=== PATIENT | female | born 1970 | race Caucasian/White ===

== ENCOUNTER → 2018-06-25 | Outpatient (CLI) | payer OTHER ==
[2015-04-21 16:00] VITALS: BP 144/82
[~2018-06-25] MED LIST: IBUP400T18; METF100010 PO; METH-38 PO; NAPR-514 PO; SITA50TA PO; VENL75CA PO
[2018-06-25 15:15] LABS: BASO # 0.1 x10^3/uL (0.0-0.2); BASO % 1 % (0-3); EOS # 0.2 x10^3/uL (0.0-0.7); EOS % 2 % (0-3); HEMATOCRIT 45.3 % (36.0-47.0); HEMOGLOBIN 14.6 g/dL (12.0-15.5); LYMPH # 1.9 x10^3/uL (1.0-4.8); LYMPH % 21 % (24-48); MEAN CORPUSCULAR HEMOGLOBIN 31 pg (25-35); MEAN CORPUSCULAR HGB CONC 32 g/dL (31-37); MEAN CORPUSCULAR VOLUME 95 fL (79-100); MONO # 0.6 x10^3/uL (0.0-1.1); MONO % 7 % (0-9); NEUT # 6.2 x10^3uL (1.8-7.7); NEUT % 69 % (31-73); PLATELET COUNT 314 x10^3/uL (140-400); RED BLOOD COUNT 4.75 x10^6/uL (3.50-5.40); RED CELL DISTRIBUTION WIDTH 14.2 % (11.5-14.5); WHITE BLOOD COUNT 8.9 x10^3/uL (4.0-11.0)
[2018-06-25 15:18] LABS: CALCIUM 9.1 mg/dL (8.5-10.1); CREATININE 0.9 mg/dL (0.6-1.0); GFR 67.4; POTASSIUM 4.1 mmol/L (3.5-5.1)
[2018-06-26 20:09] LABS: HEMOGLOBIN A1C 6.4 % (4.8-5.6)
== END | disposition home or self-care (01) ==
LOC: LAB 14:26
PROVIDERS: ATTEND Neurological Surgery
DX: Z01.818 Encounter for other preprocedural examination (principal); M50.223 Other cervical disc displacement at C6-C7 level; Z91.040 Latex allergy status; Z91.048 Other nonmedicinal substance allergy status
CPT/HCPCS: 36415; 80048; 83036; 85025; 85610; 87641

== ENCOUNTER → 2018-08-06 | Outpatient (CLI) | payer OTHER ==
[2015-04-21 16:00] VITALS: BP 144/82
--- NOTE | 2018-08-06 15:19 | RAD ---
EXAM: Cervical spine, 3 views. HISTORY: Fusion. COMPARISON: MRI dated 06/13/2018. FINDINGS: Frontal, lateral and odontoid views of the cervical spine are obtained. There is instrumented anterior spinal fusion and interbody fusion and C5-C7. There is prevertebral soft tissue prominence likely due to relative recent postoperative change. There is degenerative endplate remodeling with disc space narrowing at C7-T1. There is multilevel facet arthropathy. IMPRESSION: 1. Instrumented fusion at C5-C7. There is prevertebral soft tissue prominence likely due to relative recent postoperative changes. 2. Multilevel degenerative change, primarily at C7-T1. Electronically signed by: Carola Hernadez MD (08/06/2018 3:17 PM) [facility]
== END | disposition home or self-care (01) ==
LOC: RAD 14:57
PROVIDERS: ATTEND Neurological Surgery
DX: M43.22 Fusion of spine, cervical region (principal); M47.893 Other spondylosis, cervicothoracic region; M48.03 Spinal stenosis, cervicothoracic region; M12.88 Other specific arthropathies, not elsewhere classified, other specified site; Z98.1 Arthrodesis status
CPT/HCPCS: 72040

== ENCOUNTER → 2018-09-10 | Outpatient (CLI) | payer OTHER ==
[2015-04-21 16:00] VITALS: BP 144/82
--- NOTE | 2018-09-10 14:53 | RAD ---
DATE: 09/10/2018 EXAM: MAMMO TREMAINE SCREENING BILATERAL HISTORY: Routine screening COMPARISON: Baseline study This study was interpreted with the benefit of Computerized Aided Detection (CAD). Breast Density: SCATTERED The breast parenchyma shows scattered fibroglandular densities. Breast parenchyma level B. FINDINGS: 2-D and 3-D tomosynthesis imaging was performed in CC and MLO projections. No suspicious breast density or architectural distortion is seen. Minimal benign type calcifications are noted. No suspicious microcalcifications are seen. IMPRESSION: There is no mammographic evidence of malignancy in either breast. BI-RADS CATEGORY: 2 BENIGN FINDING(S) RECOMMENDED FOLLOW-UP: 12M 12 MONTH FOLLOW-UP PQRS compliance statement: Patient information was entered into a reminder system with a target due date for the next mammogram. Mammography is a sensitive method for finding small breast cancers, but it does not detect them all and is not a substitute for careful clinical examination. A negative mammogram does not negate a clinically suspicious finding and should not result in delay in biopsying a clinically suspicious abnormality. "Our facility is accredited by the [employer] Mammography Program."
== END | disposition home or self-care (01) ==
LOC: MAMMO 13:42
PROVIDERS: ATTEND Physician Assistant Medical
DX: Z12.31 Encounter for screening mammogram for malignant neoplasm of breast (principal); R92.8 Other abnormal and inconclusive findings on diagnostic imaging of breast
CPT/HCPCS: 77063; 77067

== ENCOUNTER → 2018-10-15 | Outpatient (CLI) | payer OTHER ==
[2015-04-21 16:00] VITALS: BP 144/82
--- NOTE | 2018-10-15 12:52 | RAD ---
Cervical spine, 3 views, 10/15/2018: HISTORY: Postop anterior spinal fusion Comparison is made to a study from 08/06/2018. Changes of an anterior spinal fusion from C5 through C7 are again noted. There is an anterior fixation plate in place with 2 screws extending into the C5, C6 and C7 vertebral bodies. Radiopaque disc spacers are present C5-6 and C6-7. The alignment is anatomic and unchanged. There are mild scattered degenerative changes in the cervical spine including the C7-T1 disc level. No new bony abnormality is detected. IMPRESSION: Stable lower cervical anterior spinal fusion. Electronically signed by: Boris Scruggs MD (10/15/2018 12:50 PM) [facility]
== END | disposition home or self-care (01) ==
LOC: RAD 12:09
PROVIDERS: ATTEND Neurological Surgery
DX: M43.22 Fusion of spine, cervical region (principal); Z98.1 Arthrodesis status
CPT/HCPCS: 72040

== ENCOUNTER → 2018-12-01 | Outpatient (CLI) | payer OTHER ==
[2015-04-21 16:00] VITALS: BP 144/82
--- NOTE | 2018-12-01 11:06 | RAD ---
3 view cervical spine 12/01/2018 INDICATION: Neck pain following ACDF COMPARISON STUDY: Cervical spine radiographs October 15, 2018 FINDINGS: No evidence of acute fracture or alignment abnormality is identified. Postsurgical change following anterior fusion of C5-C7 again noted. Configuration appears grossly unchanged. No acute appearing prevertebral soft tissue thickening is identified in the interval. The atlantoaxial articulation appears to remain intact. No gross hardware complication is identified. IMPRESSION: Stable radiographic appearance of the cervical spine. Electronically signed by: Cornelio Elder MD (12/01/2018 11:04 AM) [id number]
== END | disposition home or self-care (01) ==
LOC: DXRAD 09:41
PROVIDERS: ATTEND Neurological Surgery
DX: M54.2 Cervicalgia (principal); Z98.1 Arthrodesis status
CPT/HCPCS: 72040

== ENCOUNTER → 2018-12-01 | Outpatient (CLI) | payer OTHER ==
[2015-04-21 16:00] VITALS: BP 144/82
[2018-12-01 10:38] LABS: BASO % 1 % (0-3); EOS # 0.2 x10^3/uL (0.0-0.7); EOS % 4 % (0-3); HEMATOCRIT 41.5 % (36.0-47.0); HEMOGLOBIN 13.8 g/dL (12.0-15.5); LYMPH # 1.4 x10^3/uL (1.0-4.8); LYMPH % 30 % (24-48); MEAN CORPUSCULAR HEMOGLOBIN 32 pg (25-35); MEAN CORPUSCULAR HGB CONC 33 g/dL (31-37); MEAN CORPUSCULAR VOLUME 95 fL (79-100); MONO # 0.3 x10^3/uL (0.0-1.1); MONO % 6 % (0-9); NEUT # 2.8 x10^3uL (1.8-7.7); NEUT % 60 % (31-73); PLATELET COUNT 226 x10^3/uL (140-400); RED BLOOD COUNT 4.35 x10^6/uL (3.50-5.40); RED CELL DISTRIBUTION WIDTH 14.1 % (11.5-14.5); WHITE BLOOD COUNT 4.7 x10^3/uL (4.0-11.0)
[2018-12-01 10:45] LABS: ALBUMIN 3.8 g/dL (3.4-5.0); ALBUMIN/GLOBULIN RATIO 1.2 (1.0-1.7); CREATININE 0.8 mg/dL (0.6-1.0); GFR 76.9; POTASSIUM 4.2 mmol/L (3.5-5.1); TOTAL BILIRUBIN 0.4 mg/dL (0.2-1.0)
[2018-12-01 15:25] LABS: FREE T4 0.89 ng/dL (0.76-1.46)
[2018-12-01 15:26] LABS: THYROID STIM HORMONE (TSH) 1.576 uIU/mL (0.358-3.740)
[2018-12-01 20:08] LABS: FSH 92.7 mIU/mL (.); LUTEINIZING HORMONE 50.7 mIU/mL (.); PROGESTERONE 0.2 ng/mL (.); TESTOSTERONE TOTAL 10 ng/dL (8-48)
[2018-12-02 10:07] LABS: HEMOGLOBIN A1C 6.1 % (4.8-5.6)
== END | disposition home or self-care (01) ==
LOC: LAB 09:34
PROVIDERS: ATTEND Physician Assistant Medical
DX: E55.9 Vitamin D deficiency, unspecified (principal); R53.83 Other fatigue; R23.2 Flushing; Z98.84 Bariatric surgery status
CPT/HCPCS: 36415; 80053; 80061; 82306; 82607; 82672; 82728; 83001; 83002; 83036; 83540; 83550; 84144; 84403; 84439; 84443; 84481; 85025

== ENCOUNTER 2020-09-24 19:41 | Emergency (ER) | payer BC, OTHER ==
[~2020-09-24] VITALS: Ht 170.2 cm; Wt 87.7 kg
--- NOTE | 2020-09-24 20:15 | PHYS DOC ---
Past History Past Medical History: Arthritis, Diabetes, Sciatica, Other Past Surgical History: , Hysterectomy, Other Past Surgical History back s urgery Smoking: Non-smoker Alcohol Use: None Drug Use: None General Adult EDM: Chief Complaint: HIP PAIN HPI: HPI: ".. I having severe pain.. here on my lateral .. Rt right thigh..." Patient is a 49 year old female who presents with above hx and complaints severe pain along her upper hip and right thigh. Pain has been somewhat persistent tonight. Patient has had previous history of sciatica but feels that this pain is different. Patient has past medical history of sciatica, diabetes, arthritis, and muscle spasms. Patient denies any fever or chills. No recent travel. No history of cancer. No history immunosuppression. No history of problems with defecation or urination. Normally follows flow of [place] and Dr. Mckeon for care. Pt. denies any recent trauma. No heavy lifting. Review of Systems: Review of Systems: Constitutional: Denies fever or chills Eyes: Denies change in visual acuity HENT: Denies nasal congestion or sore throat Respiratory: Denies cough or shortness of breath Cardiovascular: Denies chest pain or edema GI: Denies abdominal pain, nausea, vomiting, bloody stools or diarrhea : Denies dysuria Musculoskeletal: Complains of right hip pain that runs down her leg Integument: Denies rash Neurologic: Denies headache, focal weakness or sensory changes Endocrine: Denies polyuria or polydipsia Lymphatic: Denies swollen glands Psychiatric: Denies depression or anxiety Family History: Family History: Noncontributory to presentation Current Medications: Current Meds: See nursing for home meds Allergies: Allergies: Allergies Coded Allergies Type Severity Reaction Last Updated Verified No Known Drug Allergies 03/23/16 No Physical Exam: PE: Constitutional: Moderate acute distress, non-toxic appearance. [] HENT: Normocephalic, atraumatic, bilateral external ears normal, oropharynx moist, no oral exudates, nose normal. [] Eyes: PERRLA, EOMI, conjunctiva normal, no discharge. [] Neck: Normal range of motion, no tenderness, supple, no stridor. [] Cardiovascular:Heart rate regular rhythm, no murmur [] Lungs & Thorax: Bilateral breath sounds clear to auscultation [] Abdomen: Bowel sounds normal, soft, no tenderness, no masses, no pulsatile masses. Old surgery scars. Skin: Warm, dry, no erythema, no rash. [] Back: Mild paralumbar muscle tenderness, no CVA tenderness. [] No midline tenderness. Old surgery scars. Extremities: No tenderness, no cyanosis, no clubbing, ROM intact, no edema. [] Tenderness along right hip sciatic nerve into right upper thigh. Some exacerbation with straight leg lift on right. Neurologic: Alert and oriented X 3, normal motor function, normal sensory function, no focal deficits noted. [] DTRs +2 patella and brachial. Brand Strategy Manager equal. Ambulatory. Psychologic: Affect anxious, judgement normal, mood normal. [] EKG: EKG: [] Radiology/Procedures: Radiology/Procedures: [][address] [address] IMAGING REPORT Signed PATIENT: CHARLOTTE HUTCHINS ACCOUNT: [id number] : 1970 LOCATION: ER AGE: 49 SEX: F EXAM STATUS: REG ER ORD. PHYSICIAN: KATERINA PENA MD REASON: pain PROCEDURE: CT LUMBAR SPINE WO CONTRAST Exam: CT of lumbar spine and pelvis without contrast INDICATION: Pain TECHNIQUE: Sequential axial images through the lumbar spine and pelvis obtained without IV contrast. Sagittal and coronal reformatted images were reconstructed from the axial data and reviewed. Comparisons: None FINDINGS: Lumbar spine: Vertebral body heights and alignment are well-maintained. Fracture to the lumbar spine is not identified. Mild spondylotic changes lumbar spine with degenerative disc disease greatest at L5-S1. Visualized paraspinal soft tissues are unremarkable. Pelvis: Visualized intrapelvic structures are unremarkable. Bone mineralization is normal. No acute fractures identified. Sacroiliac joints, pubic symphysis and hip joints are well-maintained. IMPRESSION: 1. Negative CT lumbar spine for acute traumatic injury. 2. No acute traumatic injury identified in the pelvis. Exposure: One or more of the following in the visualized dose reduction techniques were utilized for this examination: 1. Automated exposure control 2. Adjustment of the MA and/or KV according to patient size 3. Use of iterative of reconstructive technique Electronically signed by: Yumi Bush MD (09/24/2020 10:30 PM) [facility] DICTATED AND SIGNED BY: YUMI BUSH MD DATE: 09/24/202225 CC: KATERINA PENA MD; ELIANE MCKEON Heart Score: C/O Chest Pain: N/A Risk Factors: Risk Factors: DM, Current or recent (<one month) smoker, HTN, HLP, family history of CAD, obesity. Risk Scores: Score 0 - 3: 2.5% MACE over next 6 weeks - Discharge Home Score 4 - 6: 20.3% MACE over next 6 weeks - Admit for Clinical Observation Score 7 - 10: 72.7% MACE over next 6 weeks - Early Invasive Strategies Course & Med Decision Making: Course & Med Decision Making Pertinent Labs and Imaging studies reviewed. (See chart for details) Patient take Tylenol and ibuprofen as needed for pain. Use lidocaine pain patches over area that is tender. Follow-up primary care. Return if any concerns. If continued pain consider work-up with neurology and neurosurgery. Consider physical therapy. Return if any concerns. Consider MRI if persent problems. Impression: 1. Exacerbation of sciatica 2. Multiple level degenerative joint changes. (More degenerative joint changes at L4-5 and S1.) 3. Mild Anemia 11.7 [] Dragon Disclaimer: Dragon Disclaimer: This electronic medical record was generated, in whole or in part, using a voice recognition dictation system. Departure Departure: Referrals: ELIANE MCKEON [employer] (PCP) Dragon Disclaimer This chart was dictated in whole or in part using Voice Recognition software in a busy, high-work load, and often noisy Emergency Department environment. It may contain unintended and wholly unrecognized errors or omissions. Dragon Disclaimer This chart was dictated in whole or in part using Voice Recognition software in a busy, high-work load, and often noisy Emergency Department environment. It may contain unintended and wholly unrecognized errors or omissions. KATERINA PENA MD Sep 24, 2020 20:15
[2020-09-24] MEDS ORDERED: MORPHINE SULFATE 10 MG/ML SYRINGE. SQ ONE (21:30)
[2020-09-24] MEDS ORDERED: KETOROLAC 60 MG/2 ML VIAL. IM ONE (21:30)
[2020-09-24] MEDS ORDERED: methylPREDNISolone ACETATE 40 MG/ML VIAL. IM ONE (21:30)
[2020-09-24] MEDS ORDERED: ORPHENADRINE CITRATE 60 MG/2 ML VIAL. IM ONE (21:30)
[2020-09-24 22:03] LABS: BASO % 1 % (0-3); EOS # 0.2 x10^3/uL (0.0-0.7); EOS % 3 % (0-3); HEMATOCRIT 36.7 % (36.0-47.0); HEMOGLOBIN 11.7 g/dL (12.0-15.5); LYMPH # 2.2 x10^3/uL (1.0-4.8); LYMPH % 37 % (24-48); MEAN CORPUSCULAR HEMOGLOBIN 28 pg (25-35); MEAN CORPUSCULAR HGB CONC 32 g/dL (31-37); MEAN CORPUSCULAR VOLUME 87 fL (79-100); MONO # 0.5 x10^3/uL (0.0-1.1); MONO % 8 % (0-9); NEUT # 3.2 x10^3uL (1.8-7.7); NEUT % 52 % (31-73); PLATELET COUNT 218 x10^3/uL (140-400); RED BLOOD COUNT 4.24 x10^6/uL (3.50-5.40); RED CELL DISTRIBUTION WIDTH 17.1 % (11.5-14.5); WHITE BLOOD COUNT 6.1 x10^3/uL (4.0-11.0)
[2020-09-24 22:09] LABS: CALCIUM 9.3 mg/dL (8.5-10.1); CREATININE 0.8 mg/dL (0.6-1.0); GFR 76.6
[2020-09-24 22:16] LABS: ALBUMIN 3.8 g/dL (3.4-5.0); DIRECT BILIRUBIN 0.1 mg/dL (0.0-0.2); MAGNESIUM 1.9 mg/dL (1.8-2.4); TOTAL BILIRUBIN 0.2 mg/dL (0.2-1.0); TOTAL PROTEIN 6.7 g/dL (6.4-8.2)
--- NOTE | 2020-09-24 22:32 | RAD ---
Exam: CT of lumbar spine and pelvis without contrast INDICATION: Pain TECHNIQUE: Sequential axial images through the lumbar spine and pelvis obtained without IV contrast. Sagittal and coronal reformatted images were reconstructed from the axial data and reviewed. Comparisons: None FINDINGS: Lumbar spine: Vertebral body heights and alignment are well-maintained. Fracture to the lumbar spine is not identified. Mild spondylotic changes lumbar spine with degenerative disc disease greatest at L5-S1. Visualized paraspinal soft tissues are unremarkable. Pelvis: Visualized intrapelvic structures are unremarkable. Bone mineralization is normal. No acute fractures identified. Sacroiliac joints, pubic symphysis and hip joints are well-maintained. IMPRESSION: 1. Negative CT lumbar spine for acute traumatic injury. 2. No acute traumatic injury identified in the pelvis. Exposure: One or more of the following in the visualized dose reduction techniques were utilized for this examination: 1. Automated exposure control 2. Adjustment of the MA and/or KV according to patient size 3. Use of iterative of reconstructive technique Electronically signed by: Yumi Arzate MD (09/24/2020 10:30 PM) [facility]
[2020-09-24 23:38] VITALS: BP 139/83
== END 2020-09-24 23:35 | disposition home or self-care (01) ==
LOC: ER 19:41
DX: M54.31 Sciatica, right side (principal); M47.817 Spondylosis without myelopathy or radiculopathy, lumbosacral region; D64.9 Anemia, unspecified; M19.90 Unspecified osteoarthritis, unspecified site; E11.9 Type 2 diabetes mellitus without complications; Z98.890 Other specified postprocedural states; Z90.710 Acquired absence of both cervix and uterus
CPT/HCPCS: 36415; 72131; 72192; 80048; 80076; 82550; 83690; 83735; 84484; 85025; 85379; 85610; 96372; 99285; J1030; J1885; J2270; J2360

== ENCOUNTER → 2021-02-06 | Outpatient (CLI) | payer BC ==
--- NOTE | 2021-02-07 08:54 | RAD ---
EXAM: Lumbar spine, 3 views. HISTORY: Lumbar fusion. COMPARISON: 09/24/2020 FINDINGS: 3 views of the lumbar spine are obtained. There is instrumented posterior spinal fusion at L4-S1. The left S1 screw appears to traverse the L5-S1 disc space. There is slight lucency surroundin g the L5 screws, not clearly within limits to suggest loosening. There is multilevel endplate remodel ing. There is minimal retrolisthesis of L4 and L5. There is facet arthropathy at the lower lumbar lev els. There are surgical clips and a surgical anastomosis within the left upper quadrant. IMPRESSION: 1. Instrumented posterior spinal fusion at L4-S1, described above. 2. Multilevel degenerative change, primarily at the lower lumbar levels. Electronically signed by: Carola Hernadez MD (02/07/2021 8:51 AM) [id number]
== END ==
LOC: LAB 15:43
PROVIDERS: ATTEND Neurological Surgery
DX: M47.816 Spondylosis without myelopathy or radiculopathy, lumbar region (principal); M43.16 Spondylolisthesis, lumbar region
CPT/HCPCS: 72100

== ENCOUNTER → 2021-06-16 | Outpatient (CLI) | payer BC ==
--- NOTE | 2021-06-17 21:45 | RAD ---
AP view of the pelvis and two-view study of both hips Clinical indications: Bilateral hip pain. Right hip: There is mild degenerative spurring of the right femoral head without joint space narrowin g. No acute fracture or dislocation or lytic process is seen. Left hip: No acute fracture or dislocation or lytic process is seen. No significant arthritic change is evident. AP view of the pelvis: no lytic process or acute fracture or diastases is seen. IMPRESSION: Mild degenerative spurring and osteoarthritis of the right hip joint. Electronically signed by: Timothy Cross MD (06/17/2021 9:43 PM) [id number]
== END ==
LOC: RAD 06-15 15:59
PROVIDERS: ATTEND Registered Nurse
DX: M16.11 Unilateral primary osteoarthritis, right hip (principal); M25.851 Other specified joint disorders, right hip; M25.552 Pain in left hip
CPT/HCPCS: 73521